=== PATIENT | male | born 1985 | race Hispanic/Latino ===

== ENCOUNTER 2020-07-14 09:46 | Emergency (ER) | payer SELFPAY ==
[2020-07-14 09:55] VITALS: BP 135/77
[2020-07-14] MEDS ORDERED: KETOROLAC 60 MG/2 ML INJ IM ONE (09:55)
[2020-07-14] MEDS ORDERED: LIDOCAINE 5% 1 EACH PATCH TD STA (09:55)
[2020-07-14] MEDS ORDERED: ACETAMINOPHEN 500 MG TAB PO ONE (09:57)
--- NOTE | 2020-07-14 09:57 | Emergency Department Report ---
ED Back Pain/Injury HPI - General Chief Complaint: Back Pain/Injury Stated Complaint: BACK INJURY Time Seen by Provider: 07/14/20 09:51 Source: patient Limitations: No Limitations - History of Present Illness Initial Comments: 35 yr old male who denies any significant pmhx presents to ED c/o left interscapular pain. Patient states his pain started just [employer]. He states he was at work, he was carrying a bundle of shingles on his head up a ladder when the shingles started fall backwards. He states he tried to catch them and in process felt a pop the muscles of his left thoracic back. Since then he has been having significant pain in that area. He states pain is worse with rotation of his head/trunk to left. He states he has not taken anything for pain. He denies any hx of chronic back issues. He reports no numbness, weakness, tingling, bowel or bladder incontinence or constipation or retention. He denies any saddle anesthesia, chest pain or SOB. MD Complaint: back pain, back injury -: Sudden (Just [employer]) Similar Symptoms Previously: No - Related Data Previous Rx's Medication Instructions Recorded Last Taken Type Pantoprazole [Protonix TAB] 40 mg PO QDAY tablet 03/28/[address] [Depakote Dr] 500 mg PO BID #60 tablet 04/01/18 Unknown Rx Mirtazapine [Remeron 15mg TAB] 15 mg PO QHS #30 tablet 04/01/18 Unknown Rx clonazePAM [KlonoPIN] 1 mg PO TID #30 tablet 04/01/18 Unknown Rx Acetaminophen/Codeine [Tylenol 1 tab PO Q4HR PRN #12 tablet 07/14/20 Unknown Rx /Codeine # 3 tab] Lidocaine [Lidoderm] 1 each TP DAILY #10 adh..patch 07/14/20 Unknown Rx methOCARBAMOL [Robaxin TAB] 750 mg PO Q8H PRN #30 tablet 07/14/20 Unknown Rx Allergies Allergy/AdvReac Type Severity Reaction Status Date / Time No Known Allergies Allergy Verified 03/29/18 11:10 ED Review of Systems ROS: Stated complaint: BACK INJURY Other details as noted in HPI Comment: All other systems reviewed and negative Respiratory: denies: cough, shortness of breath, wheezing Cardiovascular: denies: chest pain, palpitations Gastrointestinal: denies: abdominal pain, nausea, diarrhea, constipation, hematemesis, melena, hematochezia Musculoskeletal: back pain Neurological: denies: headache, weakness, paresthesias Psychiatric: denies: anxiety, depression ED Past Medical Hx - Past Medical History Previous Medical History?: Yes Hx Hypertension: No Hx Heart Attack/AMI: No Hx Liver Disease: No Hx Renal Disease: No Hx Seizures: No Hx Asthma: No Additional medical history: opiate dependency - Surgical History Past Surgical History?: Yes Additional Surgical History: testicular surgery, right shoulder - Social History Smoking Status: Never Smoker Substance Use Type: None - Medications Home Medications: Home Medications Medication Instructions Recorded Confirmed Last Taken Type Pantoprazole [Protonix TAB] 40 mg PO QDAY tablet 03/28/[address] [Depakote Dr] 500 mg PO BID #60 tablet 04/01/18 Unknown Rx Mirtazapine [Remeron 15mg TAB] 15 mg PO QHS #30 tablet 04/01/18 Unknown Rx clonazePAM [KlonoPIN] 1 mg PO TID #30 tablet 04/01/18 Unknown Rx Acetaminophen/Codeine [Tylenol 1 tab PO Q4HR PRN #12 tablet 07/14/20 Unknown Rx /Codeine # 3 tab] Lidocaine [Lidoderm] 1 each TP DAILY #10 adh..patch 07/14/20 Unknown Rx methOCARBAMOL [Robaxin TAB] 750 mg PO Q8H PRN #30 tablet 07/14/20 Unknown Rx ED Physical Exam - General Limitations: No Limitations General appearance: alert, other (patient appears uncomfortable. He appears to be in pain. ) - Head Head exam: Present: atraumatic, normocephalic, normal inspection - Neck Neck exam: Present: normal inspection, full ROM. Absent: meningismus - Respiratory Respiratory exam: Present: normal lung sounds bilaterally. Absent: respiratory distress - Cardiovascular Cardiovascular Exam: Present: regular rate, normal rhythm, normal heart sounds - Back Exam Back exam: Present: normal inspection, tenderness (Moderate; left paraspinal muscle in interscapular area with mod spasm), muscle spasm (Left interscapular area), paraspinal tenderness (Left interscapular area). Absent: full ROM (mildly decrease with rotation to left), vertebral tenderness - Neurological Exam Neurological exam: Present: alert, oriented X3, CN II-XII intact, normal gait - Psychiatric Psychiatric exam: Present: normal affect, normal mood - Skin Skin exam: Present: intact ED Course Vital Signs 07/14/20 07/14/20 07/14/20 09:54 10:01 10:04 Temperature 98.4 F Pulse Rate 74 Respiratory 20 20 20 Rate Blood Pressure 135/77 O2 Sat by Pulse 96 Oximetry ED Medical Decision Making - Radiology Data Radiology results: report reviewed The patient presented with acute back pain. The patient is now resting comfortably and, is alert, talkative, interactive and in no distress. The patient is neurologically intact and is ambulatory in the ED. the patient has no fever, no bowel or bladder incontinence, no saddle anesthesia and is otherwise alert and well-appearing. The patient history, physical examination and diagnostic testing does not suggest the presence of acute spinal epidural abscess, acute epidural bleed, cauda equina syndrome, abdominal/thoracic aortic aneurysm, aortic dissection ACS, PE, or other acute process requiring further testing, treatment or consultation in the emergency department. The vital signs have been stable. The patient condition is stable and appropriate for discharge. The patient will pursue further outpatient evaluation with the primary care physician or other designated or consulting physician as indicated in the discharge instructions. Critical care attestation.: If time is entered above; I have spent that time in minutes in the direct care of this critically ill patient, excluding procedure time. ED Disposition Clinical Impression: Strain of thoracic back region Disposition: DC-01 TO HOME OR SELFCARE Is pt being admited?: No Does the pt Need Aspirin: No Condition: Stable Instructions: Muscle Strain, [id number] Additional Instructions: Take the medications prescribed. I recommend rest, and no exercise or other strenous activity x 1 week. You can apply ice to area; If your symptoms not better in 7-10 days follow up with [facility]. Return to ED if symptoms changes or worsens. Prescriptions: Lidocaine [Lidoderm] 1 each TP DAILY #10 adh..patch methOCARBAMOL [Robaxin TAB] 750 mg PO Q8H PRN #30 tablet PRN Reason: muscle spasms Acetaminophen/Codeine [Tylenol /Codeine # 3 tab] 1 tab PO Q4HR PRN #12 tablet PRN Reason: Pain Referrals: PRIMARY CARE, [Primary Care Provider] - 3-5 Days Forms: Work/School Release Form(ED) Time of Disposition: 10:37
--- NOTE | 2020-07-14 10:25 | XRay Report ---
THORACIC SPINE 3 VIEWS INDICATION / CLINICAL INFORMATION: upper back injury/felt pop interscapular area. COMPARISON: None available. FINDINGS: VERTEBRAE: No acute fracture. No significant malalignment. DISC SPACES / FACET JOINTS:No significant abnormality. PARASPINAL SOFT TISSUES:No significant abnormality. ADDITIONAL FINDINGS: None. Signer Name: Ernie Hsu MD Signed: 07/14/2020 10:21 AM Workstation Name: [id number]
== END 2020-07-14 10:51 | disposition home or self-care (01) ==
LOC: ED 09:46
DX: S29.012A Strain of muscle and tendon of back wall of thorax, initial encounter (principal); Z98.890 Other specified postprocedural states; Z79.899 Other long term (current) drug therapy; X58.XXXA Exposure to other specified factors, initial encounter; Y93.89 Activity, other specified; Y92.89 Other specified places as the place of occurrence of the external cause; Y99.0 Civilian activity done for income or pay
CPT/HCPCS: 72072; 96372; 99283; J1885